=== PATIENT | female | born 1980 ===

== ENCOUNTER 2016-07-29 15:42 | Emergency (ER) | payer SELFPAY ==
[~2016-07-29] VITALS: Ht 154.9 cm; Wt 52.3 kg
[~2016-07-29 15:42] MED LIST: ALLERGY RELIEF10 M1 PO; AMOXICILLIN 50500 MG PO; CELEXA10 MG PO; CEPHALEXIN500 M1 PO; DOXYCYCLINE HY100 M5 PO; ESZOPICOLONE; FLEXERIL 1010 MG/TAB PO; FLEXERIL10 MG PO; KLONOPIN0.5 MG PO; LORTAB 5/500 501 TAB PO; MOTRIN600 MG PO; NAPROSYN500 MG PO; NO HOME MEDICATIONS; NORCO 325 MG-51 TAB PO; PERCOCET 325 MG1 TA2 PO; PERCOCET 325 MG1 TAB PO; PERCR 7.5 PO; PYRIDIUM200 M1 PO; ULTRAM 50MG TAB50 MG PO; WELLBUTRIN 100100 MG PO; WELLBUTRIN100 MG PO; XANAX 0.5MG0.5 MG PO; ZOFRAN 4MG T4 MG/TAB PO
[2016-07-29 15:46] VITALS: BP 120/62; TEMP 98.9
[2016-07-29] MEDS ORDERED: FLEXERIL 1010 MG/TAB PO (17:39)
[2016-07-29 18:14] VITALS: PULSE 68
== END 2016-07-29 18:15 | disposition home or self-care (01) ==
LOC: COL.ER 15:42
DX: S16.1XXA Strain of muscle, fascia and tendon at neck level, initial encounter (principal); M62.838 Other muscle spasm; W01.198A Fall on same level from slipping, tripping and stumbling with subsequent striking against other object, initial encounter; Y92.89 Other specified places as the place of occurrence of the external cause

== ENCOUNTER 2016-08-03 10:58 | Emergency (ER) | payer SELFPAY ==
[~2016-08-03] VITALS: Ht 154.9 cm; Wt 52.3 kg
[2016-08-03 11:01] VITALS: BP 154/61; TEMP 99.1
[2016-08-03 12:32] VITALS: PULSE 108
== END 2016-08-03 12:33 | disposition home or self-care (01) ==
LOC: COL.ER 10:58
DX: S16.1XXA Strain of muscle, fascia and tendon at neck level, initial encounter (principal); S13.4XXA Sprain of ligaments of cervical spine, initial encounter; M62.838 Other muscle spasm; M62.830 Muscle spasm of back; M54.9 Dorsalgia, unspecified; W01.198A Fall on same level from slipping, tripping and stumbling with subsequent striking against other object, initial encounter; Y92.89 Other specified places as the place of occurrence of the external cause; F17.210 Nicotine dependence, cigarettes, uncomplicated
CPT/HCPCS: J2360

== ENCOUNTER 2016-09-27 10:13 | Outpatient (RCR) | payer OTHER ==
[2016-10-25] MEDS ORDERED: PREDNISONE20 MG PO (16:13)
== END 2016-11-05 | disposition home or self-care (01) ==
LOC: WSPT
DX: S16.1XXA Strain of muscle, fascia and tendon at neck level, initial encounter (principal)
CPT/HCPCS: G0283-GP

== ENCOUNTER 2016-10-25 15:44 | Emergency (ER) | payer SELFPAY ==
[~2016-10-25] VITALS: Ht 154.9 cm; Wt 58.5 kg
[2016-10-25 15:45] VITALS: BP 112/64; TEMP 98.8
[2016-10-25] MEDS ORDERED: PREDNISONE20 MG PO (16:13)
[2016-10-25 16:33] VITALS: PULSE 66
== END 2016-10-25 16:32 | disposition home or self-care (01) ==
LOC: COL.ER 15:44
DX: L23.7 Allergic contact dermatitis due to plants, except food (principal); F17.200 Nicotine dependence, unspecified, uncomplicated

== ENCOUNTER 2016-10-26 11:00 | Emergency (ER) | payer SELFPAY ==
[~2016-10-26] VITALS: Ht 154.9 cm; Wt 58.2 kg
[~2016-10-26 11:00] MED LIST changes: +PREDNISONE20 MG PO
[2016-10-26 11:03] VITALS: BP 132/62; TEMP 99.3
[2016-10-26 13:23] VITALS: PULSE 75
== END 2016-10-26 13:23 | disposition home or self-care (01) ==
LOC: COL.ER 11:00
DX: L23.7 Allergic contact dermatitis due to plants, except food (principal); K21.9 Gastro-esophageal reflux disease without esophagitis; F17.210 Nicotine dependence, cigarettes, uncomplicated; Z98.51 Tubal ligation status; Z90.49 Acquired absence of other specified parts of digestive tract

== ENCOUNTER 2017-04-22 16:36 | Emergency (ER) | payer SELFPAY ==
[~2017-04-22] VITALS: Ht 154.9 cm; Wt 59.5 kg
[2017-04-22] MEDS ORDERED: NORCO 325 MG-51 TAB PO (17:30)
[2017-04-22] MEDS ORDERED: PEN-VEE K500 MG PO (17:30)
[2017-04-22 17:51] VITALS: BP 122/60; PULSE 66; TEMP 98.3
== END 2017-04-22 17:35 | disposition home or self-care (01) ==
LOC: COL.ER 16:36
DX: K08.89 Other specified disorders of teeth and supporting structures (principal); F17.210 Nicotine dependence, cigarettes, uncomplicated

== ENCOUNTER 2017-11-12 19:28 | Emergency (ER) | payer SELFPAY ==
[~2017-11-12] VITALS: Ht 154.9 cm; Wt 57.3 kg
[~2017-11-12 19:28] MED LIST changes: +PEN-VEE K500 MG PO
[2017-11-12 19:39] LABS: COLLECTION METHOD CLEAN CATCH
[2017-11-12 20:02] LABS: AMORPHOUS CRYSTAL Present /uL; MUCOUS Present /lpf; PH 8 (5-8); SQUAMOUS EPITHELIAL 0-2 /hpf; URINE APPEARANCE Clear; URINE BACTERIA Rare /hpf; URINE BILIRUBIN Negative (NEGATIVE); URINE BLOOD Negative (NEGATIVE); URINE COLOR Yellow; URINE GLUCOSE Negative (NEGATIVE); URINE KETONE Negative (NEGATIVE); URINE LEUKOCYTE ESTERASE Negative (NEGATIVE); URINE NITRATE Negative (NEGATIVE); URINE PROTEIN(semi-quant) Negative (NEGATIVE)
[2017-11-12 21:16] LABS: BASO # 0.1 (0.0-0.2); BASO % 0.6 % (0.0-2.0); EOS # 0.1 (0.0-0.7); EOS % 1.4 % (0-4.0); GRAN # 4.4 (1.4-6.5); GRAN % 57.1 % (42.2-75.2); HEMATOCRIT 36.7 % (37.0-47.0); HEMOGLOBIN 12.3 g/dl (12.5-16.0); LYMPH # 2.6 (1.2-3.4); LYMPH % 33.9 % (20.0-51.0); MEAN CELL VOLUME 90 fl (80.0-100.0); MEAN CORPUSCULAR HEMOGLOBIN 30 pg (27.0-31.0); MEAN CORPUSCULAR HGB CONC 34 g/dl (33.0-37.0); MEAN PLATELET VOLUME 10.7 fl (7.4-10.4); MONO # 0.5 (0.1-0.6); MONO % 6.7 % (1.7-9.3); PLATELET COUNT 268 K/mm3 (130-400); RED BLOOD COUNT 4.09 M/mm3 (4.10-5.30); REDCELL DISTRIBUTION WIDTH-CV 12.6 % (11.5-14.5)
[2017-11-12 21:43] LABS: ALBUMIN 4.3 gm/dL (3.5-5.0); BILIRUBIN,TOTAL 0.5 mg/dL (0.0-1.0); C-REACTIVE PROTEIN 0.5 mg/dL (0.0-0.9); CREATININE, serum 0.66 mg/dL (0.52-1.25); POTASSIUM 3.9 mmol/L (3.4-5.0); TOTAL PROTEIN 7.3 gm/dL (6.4-8.2)
[2017-11-12 22:06] VITALS: TEMP 98.1
[2017-11-12 23:32] VITALS: BP 130/82; PULSE 67
== END 2017-11-12 23:34 | disposition home or self-care (01) ==
LOC: COL.ER 19:28
PROVIDERS: Nurse Practitioner
DX: R10.31 Right lower quadrant pain (principal); K21.9 Gastro-esophageal reflux disease without esophagitis; F12.90 Cannabis use, unspecified, uncomplicated; F17.210 Nicotine dependence, cigarettes, uncomplicated; Z90.49 Acquired absence of other specified parts of digestive tract
CPT/HCPCS: J1170; J1885; J7030

== ENCOUNTER 2018-03-04 11:27 | Emergency (ER) | payer MEDICAID ==
[~2018-03-04] VITALS: Ht 157.5 cm; Wt 52.3 kg
[2018-03-04 11:45] VITALS: BP 122/75; PULSE 71; TEMP 99
[2018-03-04 12:08] LABS: COLLECTION METHOD CLEAN CATCH
[2018-03-04 12:18] LABS: MUCOUS Present /lpf; PH 5 (5-8); SQUAMOUS EPITHELIAL None Seen /hpf; URINE APPEARANCE Clear; URINE BACTERIA None Seen /hpf; URINE BILIRUBIN Negative (NEGATIVE); URINE BLOOD 1+ (NEGATIVE); URINE COLOR Yellow; URINE GLUCOSE Negative (NEGATIVE); URINE KETONE Trace (NEGATIVE); URINE LEUKOCYTE ESTERASE Negative (NEGATIVE); URINE NITRATE Negative (NEGATIVE); URINE PROTEIN(semi-quant) Negative (NEGATIVE)
[2018-03-04 13:08] LABS: BASO # 0.1 (0.0-0.2); BASO % 0.9 % (0.0-2.0); EOS # 0.4 (0.0-0.7); EOS % 5.8 % (0-4.0); GRAN # 5.2 (1.4-6.5); GRAN % 68.4 % (42.2-75.2); HEMATOCRIT 40.6 % (37.0-47.0); HEMOGLOBIN 13.5 g/dl (12.5-16.0); LYMPH # 1.3 (1.2-3.4); LYMPH % 17.2 % (20.0-51.0); MEAN CELL VOLUME 91 fl (80.0-100.0); MEAN CORPUSCULAR HEMOGLOBIN 30 pg (27.0-31.0); MEAN CORPUSCULAR HGB CONC 33 g/dl (33.0-37.0); MEAN PLATELET VOLUME 11.3 fl (7.4-10.4); MONO # 0.6 (0.1-0.6); MONO % 7.4 % (1.7-9.3); PLATELET COUNT 246 K/mm3 (130-400); RED BLOOD COUNT 4.46 M/mm3 (4.10-5.30); REDCELL DISTRIBUTION WIDTH-CV 13.8 % (11.5-14.5)
[2018-03-04 13:18] LABS: ALBUMIN 4.7 gm/dL (3.5-5.0); BILIRUBIN,TOTAL 0.7 mg/dL (0.0-1.0); C-REACTIVE PROTEIN 0.9 mg/dL (0.0-0.9); CALCIUM 9.8 mg/dL (8.4-10.2); CREATININE, serum 0.73 mg/dL (0.52-1.25); TOTAL PROTEIN 7.9 gm/dL (6.4-8.2)
[2018-03-04] MEDS ORDERED: NORCO 325 MG-51 TAB PO (14:29)
== END 2018-03-04 15:13 | disposition home or self-care (01) ==
LOC: COL.ER 11:27
PROVIDERS: Physician Assistant
DX: R10.12 Left upper quadrant pain (principal); K21.9 Gastro-esophageal reflux disease without esophagitis; Z98.51 Tubal ligation status; Z90.49 Acquired absence of other specified parts of digestive tract; Z88.2 Allergy status to sulfonamides; Z87.891 Personal history of nicotine dependence
CPT/HCPCS: J1885; J7030; Q9967

== ENCOUNTER → 2019-02-15 | Outpatient (CLI) | payer SELFPAY | LOC: COL.RAD 11:15 | DX: E04.1 Nontoxic single thyroid nodule (principal) ==

== ENCOUNTER 2021-05-22 09:05 | Emergency (ER) | payer BC ==
[~2021-05-22] VITALS: Ht 154.9 cm; Wt 53.6 kg
[2021-05-22 09:44] VITALS: TEMP 98.1
[2021-05-22 10:16] LABS: COLLECTION METHOD CLEAN CATCH
[2021-05-22 10:26] LABS: MUCOUS Present (NOT PRESENT); PH 5 (5-8); SQUAMOUS EPITHELIAL 0-2 /hpf (0-10); URINE APPEARANCE Clear (CLEAR/HAZY); URINE BACTERIA None Seen /hpf (NONE SEEN); URINE BILIRUBIN Negative (NEGATIVE); URINE BLOOD 1+ (NEGATIVE); URINE COLOR Yellow (YELLOW); URINE GLUCOSE Negative (NEGATIVE); URINE KETONE Negative (NEGATIVE); URINE LEUKOCYTE ESTERASE Negative (NEGATIVE); URINE NITRATE Negative (NEGATIVE); URINE PROTEIN(semi-quant) Negative (NEGATIVE); URINE UROBILINOGEN Negative (NEGATIVE)
[2021-05-22 10:53] LABS: BASO # 0.1 K/mm3 (0.0-0.2); BASO % 0.6 % (0.0-2.0); EOS # 0.1 K/mm3 (0.0-0.7); EOS % 1.3 % (0.0-4.0); GRAN # 6.1 K/mm3 (1.4-6.5); GRAN % 72.7 % (42.2-75.2); HEMATOCRIT 41.6 % (37.0-47.0); HEMOGLOBIN 13.9 g/dl (12.5-16.0); LYMPH # 1.6 K/mm3 (1.2-3.4); LYMPH % 19.5 % (20.0-51.0); MEAN CELL VOLUME 92 fl (80.0-100.0); MEAN CORPUSCULAR HEMOGLOBIN 31 pg (27-31); MEAN CORPUSCULAR HGB CONC 33 g/dl (33.0-37.0); MEAN PLATELET VOLUME 10.5 fl (7.4-10.4); MONO # 0.5 K/mm3 (0.1-0.6); MONO % 5.4 % (1.7-9.3); PLATELET COUNT 293 K/mm3 (130-400); RED BLOOD COUNT 4.52 M/mm3 (4.10-5.30); REDCELL DISTRIBUTION WIDTH-CV 13.2 % (11.5-14.5)
[2021-05-22 11:04] LABS: ALBUMIN 4.3 gm/dL (3.5-5.0); CALCIUM 9.2 mg/dL (8.4-10.2); CREATININE, serum 0.74 mg/dL (0.57-1.11); POTASSIUM 4.1 mmol/L (3.5-4.5); TOTAL PROTEIN 7.7 gm/dL (6.2-8.1)
[2021-05-22] MEDS ORDERED: NORCO 325 MG-51 TAB PO (11:42)
[2021-05-22 12:08] VITALS: BP 129/79; PULSE 75
== END 2021-05-22 12:10 | disposition home or self-care (01) ==
LOC: COL.ER 09:05
PROVIDERS: Emergency Medicine
DX: N83.201 Unspecified ovarian cyst, right side (principal); Z90.49 Acquired absence of other specified parts of digestive tract; Z98.51 Tubal ligation status
CPT/HCPCS: J2270; J2405; J7030; Q9967

== ENCOUNTER 2021-08-08 12:45 | Outpatient (RCR) | payer BC | END 2021-08-11 | disposition home or self-care (01) | LOC: WSPT | DX: M51.26 Other intervertebral disc displacement, lumbar region (principal); S34.2 Injury of nerve root of lumbar and sacral spine; K59.00 Constipation, unspecified; X58.XXXS Exposure to other specified factors, sequela ==

== ENCOUNTER 2021-08-17 14:15 | Outpatient (RCR) | payer BC | END 2021-09-11 | disposition still patient (30) | LOC: WSPT | DX: S34.2 Injury of nerve root of lumbar and sacral spine (principal); M51.26 Other intervertebral disc displacement, lumbar region; X58.XXXS Exposure to other specified factors, sequela ==